=== PATIENT | male | born 1990 | race Caucasian/White ===

== ENCOUNTER 2021-11-27 09:42 | Day surgery (SDC) | payer OTHER ==
[~2021-11-27] VITALS: Ht 162.6 cm; Wt 69.6 kg
[~2021-11-27 09:42] MED LIST: LR 1,000 ML IV ONE; MIDAZOLAM INJ 2MG/2ML VIAL (J2250 PER 1MG) IV PRN; TRANEXAMIC ACID INJection 1,000 MG in NS 100 ML IV ONE; ceFAZolin SOD 2 GM in IV 1 EA IV ONE; fentaNYL 100 MCG/2 ML INJECTION IV PRN
[2021-11-27] MEDS ORDERED: EPINEPHrine INJ 1 MG/ML 1ML AMP XX ONE (11:45)
[2021-11-27] MEDS ORDERED: ROPIvacaine 0.5% 30ML INJECTION (J2795 PER 1MG) XX ONE (11:45)
[2021-11-27] MEDS ORDERED: dexameTHASONE 10MG/1ML VIAL PRES.FREE (J1100 PER 1MG) XX ONE (11:45)
[2021-11-27] MEDS ORDERED: propofoL 200 MG/20 ML VIAL As Ordered ONE (13:05)
[2021-11-27] MEDS ORDERED: MIDAZOLAM INJ 2MG/2ML VIAL (J2250 PER 1MG) As Ordered ONE (13:05)
[2021-11-27] MEDS ORDERED: dexameTHASONE 4 MG/ML 1ML VIAL (J1100 PER 1MG) As Ordered ONE (13:05)
[2021-11-27] MEDS ORDERED: ROCURONIUM BROMIDE 50 MG/5 ML VIAL As Ordered ONE (13:05)
[2021-11-27] MEDS ORDERED: LIDOCAINE 2% 100MG/5ML SDV (FOR ANES.) As Ordered ONE (13:05)
[2021-11-27] MEDS ORDERED: ONDANSETRON 4MG/2ML VIAL As Ordered ONE (13:05)
[2021-11-27] MEDS ORDERED: fentaNYL 250 MCG/5 ML INJECTION As Ordered ONE (13:05)
[2021-11-27] MEDS ORDERED: ceFAZolin 2 GM/D5W 50 ML IV BAG (J0690 PER 500MG) As Ordered ONE (13:18)
[2021-11-27] MEDS ORDERED: TRANEXAMIC ACID 100 MG/ML 10ML VIAL As Ordered ONE (13:18)
[2021-11-27] MEDS ORDERED: SUGAMMADEX SODIUM 500 MG/5 ML VIAL (BRIDION) As Ordered ONE (14:42)
[2021-11-27] MEDS ORDERED: ACETAMINOPHEN 1000MG 100ML IV BTL (OFIRMEV) (J0131 PER 10MG) As Ordered ONE (14:53)
[2021-11-27] MEDS ORDERED: ePHEDrine SULFATE 25 MG/5 ML(5MG/ML) SYRINGE As Ordered ONE (15:05)
[2021-11-27] MEDS ORDERED: KETOROLAC 60MG 2ML VIAL As Ordered ONE (16:10)
[2021-11-27] MEDS ORDERED: KETOROLAC 30 MG/ML 1ML VIAL IV PRN (16:13)
[2021-11-27] MEDS ORDERED: oxyCODONE 5MG TAB PO PRN (16:45)
[2021-11-27] MEDS ORDERED: LR 1,000 ML IV SCH ×2 (16:45)
[2021-11-27] MEDS ORDERED: fentaNYL 100 MCG/2 ML INJECTION IV PRN (16:45)
[2021-11-27] MEDS ORDERED: ONDANSETRON 4MG/2ML VIAL IV PRN (16:45)
[2021-11-27] MEDS ORDERED: HYDROmorphone HCL 2MG/ML 1ML VIAL As Ordered ONE (17:16)
[2021-11-27 17:50] VITALS: BP 128/71
== END 2021-11-27 18:04 | disposition home or self-care (01) ==
LOC: M SDC 09:42
PROVIDERS: ATTEND Orthopaedic Surgery
DX: M25.371 Other instability, right ankle (principal); M25.871 Other specified joint disorders, right ankle and foot; M67.271 Synovial hypertrophy, not elsewhere classified, right ankle and foot
CPT/HCPCS: 27696; 29895; 76000; C1713; J0131; J0171; J0690; J1100; J1885; J2250; J2405; J2795; J3010